=== PATIENT | male | born 1940 | race Caucasian/White ===

== ENCOUNTER → 2020-02-28 | Outpatient (CLI) | payer MEDICARE ==
[~2020-02-28] MED LIST: AMLO5TAB9 PO; ASCO100T12 PO; ASPI-891 PO; BETA1TAB18 PO; CLOP75TA32 PO; LOSA1TAB54 PO; METO-408 PO; PANT40TA PO; VITA400T9 PO
== END | disposition home or self-care (01) ==
LOC: SHCH 12:48
PROVIDERS: ATTEND Internal Medicine Cardiovascular Disease
DX: I35.1 Nonrheumatic aortic (valve) insufficiency (principal)
CPT/HCPCS: 93306; 93356